=== PATIENT | female | born 1930 | race Caucasian/White ===

== ENCOUNTER 2021-10-21 21:39 | Inpatient (IN) | payer MEDICARE, OTHER ==
[~2021-10-21] VITALS: Ht 165.1 cm; Wt 61.0 kg
[2021-10-21] MEDS ORDERED: ATOR40TA28 PO (22:14)
[2021-10-21] MEDS ORDERED: ASPI-1450 PO (22:14)
[2021-10-21] MEDS ORDERED: LIDO35.422 TP (22:15)
[2021-10-21] MEDS ORDERED: ACET-3385 PO (22:15)
[2021-10-21] MEDS ORDERED: MIRT-89 PO (22:15)
[2021-10-21] MEDS ORDERED: NA P133E4 PR (22:15)
[2021-10-21] MEDS ORDERED: TIZA-211 PO (22:15)
[2021-10-21] MEDS ORDERED: MAGN-169 PO (22:15)
[2021-10-21] MEDS ORDERED: BISA10SU11 PR (22:15)
[2021-10-21] MEDS ORDERED: CLOP75TA60 PO (22:15)
[2021-10-21] MEDS ORDERED: SENN-180 PO (22:15)
[2021-10-21] MEDS ORDERED: SODIUM CHLORIDE 0.9% 500 ML IV ONE (22:30)
[2021-10-21 23:17] LABS: BASOPHILS % (AUTO) 0.1 % (0.0-2.0); EOSINOPHILS % (AUTO) 0 % (1.0-6.0); HEMATOCRIT 34.5 % (36-46); HEMOGLOBIN 11.3 g/dL (12.0-16.0); LYMPHOCYTES # (AUTO) 0.4 K/uL (1.0-4.8); LYMPHOCYTES % (AUTO) 2.7 % (22.0-44.0); MEAN CORPUSCULAR HEMOGLOBIN 32.3 pg (26.0-34.0); MEAN CORPUSCULAR HGB CONC 32.7 G/dL (31.0-37.0); MEAN CORPUSCULAR VOLUME 99 fL (80-100); MONOCYTES # (AUTO) 0.3 K/uL (0.1-1.0); MONOCYTES % (AUTO) 1.5 % (2.0-9.0); PLATELET COUNT (AUTO) 237 K/uL (150-450); RED BLOOD CELL COUNT(AUTO) 3.49 MIL/uL (4.00-5.20)
[2021-10-21 23:18] LABS: NEUTROPHILS % (AUTO) 95.7 % (40.0-70.0)
[2021-10-21 23:29] LABS: ANION GAP 10 mmol/L (8-16); CARBON DIOXIDE 26 mmol/L (22-29); CHLORIDE 104 mmol/L (98-107); GLOMERULAR FILTR. RATE CALC 28 mL/min (>60); GLUCOSE,RANDOM 119 mg/dL (70-110); POTASSIUM 4.3 mmol/L (3.5-5.1); SODIUM SERUM 140 mmol/L (136-145); UREA NITROGEN, BLOOD 50 mg/dL (7-18)
[2021-10-21 23:34] LABS: ALANINE AMINOTRANSFERASE 22 U/L (12-78); ALBUMIN 2.9 g/dL (3.4-5.0); ALKALINE PHOSPHATASE 89 U/L (46-116); ASPARTATE AMINOTRANSFERASE 18 U/L (15-37); CREATINE KINASE, TOTAL ONLY 35 U/L (26-192); TOTAL PROTEIN, SERUM 7.3 g/dL (6.4-8.2)
[2021-10-21 23:40] LABS: LACTIC ACID 3.8 mmol/L (0.4-2.0)
[2021-10-22] VITALS (7 sets, daily range): BP systolic 64–131; BP diastolic 40–67
[2021-10-22 00:28] LABS: APPEARANCE,URINE TURBID (CLEAR); BILIRUBIN,URINE NEGATIVE (NEGATIVE); GLUCOSE, URINE (UA) NEGATIVE (NEGATIVE); KETONES,URINE NEGATIVE (NEGATIVE); LEUKOCYTE ESTERASE ,URINE LARGE (NEGATIVE); NITRATE,URINE NEGATIVE (NEGATIVE); OCCULT BLOOD,URINE MODERATE (NEGATIVE); PROTEIN,URINE 100-200,SEE CONFIRM mg/dL (NEGATIVE); SPECIFIC GRAVITIY, URINE 1.018 (1.003-1.030); UROBILINOGEN,URINE <=1.0 mg/dL (<=1.0)
[2021-10-22] MEDS ORDERED: ACETAMINOPHEN 325 MG TABLET PO ONE (00:30)
[2021-10-22 00:43] LABS: WBC,URINE 51-100 /HPF (0-5)
[2021-10-22 00:44] LABS: AMORPHOUS SEDIMENT,UR Moderate /LPF (None Seen); BACTERIA,URINE Moderate /HPF (None Seen); SQUAMOUS EPITHELIAL CELL,UR Rare /LPF (None Seen)
[2021-10-22] MEDS ORDERED: ACETAMINOPHEN 325 MG/ISO-OSM 32.5 ML IV ONE ×2 (00:45→04:00)
[2021-10-22] MEDS ORDERED: CefTRIAXone 1 GM/DEXTROSE 50 ML IV ONE (00:45)
[2021-10-22 00:47] LABS: SULFOSALICYLIC ACID,URINE 2+ (Negative)
[2021-10-22] MEDS ORDERED: SODIUM CHLORIDE 0.9% 1,000 ML IV ONE ×2 (01:00→04:00)
[2021-10-22 03:01] LABS: COVID AG,FIA SOURCE NASAL SWAB
[2021-10-22] MEDS ORDERED: NOREPINEPHRINE 4 MG/D5%-WATER 250 ML IV PRN (11:15)
[2021-10-22] MEDS ORDERED: BISACODYL 10 MG RECTAL RECTAL SUPPOSITORY PR PRN (11:15)
[2021-10-22] MEDS ORDERED: ONDANSETRON HCL 4 MG/2 ML VIAL IVP PRN (11:15)
[2021-10-22] MEDS ORDERED: ZOLPIDEM TARTRATE 5 MG TABLET PO PRN (11:15)
[2021-10-22] MEDS ORDERED: MAGNESIUM HYDROXIDE SUSPENSION 30 ML UDCUP PO PRN (11:15)
[2021-10-22] MEDS ORDERED: HYDROCODONE/ACETAMINOPHEN 5-325 MG TABLET PO PRN (11:15)
[2021-10-22] MEDS ORDERED: ACETAMINOPHEN 325 MG TABLET PO PRN (11:15)
[2021-10-22] MEDS ORDERED: MORPHINE SULFATE 2 MG/ML SYRINGE IVP PRN (11:15)
[2021-10-22] MEDS ORDERED: LIDO700A30 TD (11:29)
[2021-10-22] MEDS ORDERED: SODIUM CHLORIDE 0.9% 250 ML IV ONE (12:47)
[2021-10-22] MEDS: PIPERACILLIN SODIUM/TAZOBACTAM 2.25 GM in DEXTROSE 5%-WATER 50 ML IV SCH ×3 (12:54→23:58)
[2021-10-22] MEDS ORDERED: NOREPINEPHRINE 8 MG/D5%-WATER 250 ML IV PRN (15:45)
[2021-10-22] MEDS: HEPARIN SODIUM,PORCINE 5,000 UNITS/ML VIAL SQ SCH ×2 (16:26→23:57)
[2021-10-22] MEDS: SODIUM CHLORIDE 0.9% 1,000 ML IV SCH (19:44)
[2021-10-22] MEDS: DOCUSATE SODIUM 100 MG CAPSULE PO SCH (20:02)
[2021-10-23] VITALS (8 sets, daily range): BP systolic 116–149; BP diastolic 59–95
[2021-10-23] MEDS: PIPERACILLIN SODIUM/TAZOBACTAM 2.25 GM in DEXTROSE 5%-WATER 50 ML IV SCH ×3 (05:18→17:05)
[2021-10-23 08:16] LABS: HEMATOCRIT 30.4 % (36-46); MEAN CORPUSCULAR HEMOGLOBIN 32.5 pg (26.0-34.0); MEAN CORPUSCULAR HGB CONC 32.8 G/dL (31.0-37.0); MEAN CORPUSCULAR VOLUME 99 fL (80-100); PLATELET COUNT (AUTO) 144 K/uL (150-450); RED BLOOD CELL COUNT(AUTO) 3.07 MIL/uL (4.00-5.20); RED CELL DISTRIBUTION WIDTH 14.7 % (11.5-14.5)
[2021-10-23 08:34] LABS: CALCIUM, TOTAL 9.1 mg/dL (8.8-10.5); CREATININE 1.47 mg/dL (0.60-1.30)
[2021-10-23 08:47] LABS: BAND NEUTROPHILS % (MANUAL) 53 % (0-5); LYMPHOCYTES % (MANUAL) 6 % (22-44); MONOCYTES % (MANUAL) 1 % (2-9); SEGMENTED NEUTROPHILS % 40 % (40-70)
[2021-10-23 08:49] LABS: WBC MORPHOLOGY TOXIC GRANULATION
[2021-10-23] MEDS: ASPIRIN 81 MG CHEWABLE TABLET PO SCH ×4 (08:50→10:34)
[2021-10-23] MEDS: SODIUM CHLORIDE 0.9% 1,000 ML IV SCH (08:50)
[2021-10-23] MEDS: HEPARIN SODIUM,PORCINE 5,000 UNITS/ML VIAL SQ SCH ×2 (08:50→16:11)
[2021-10-23] MEDS: DOCUSATE SODIUM 100 MG CAPSULE PO SCH ×5 (08:51→20:57)
[2021-10-23] MEDS: CLOPIDOGREL BISULFATE 75 MG TABLET PO SCH ×4 (08:51→10:33)
[2021-10-23] MEDS: PANTOPRAZOLE SODIUM 40 MG DR TABLET PO SCH ×4 (08:51→10:34)
[2021-10-23] MEDS: ATORVASTATIN CALCIUM 40 MG TABLET PO SCH ×4 (08:51→10:33)
[2021-10-24] MEDS: SODIUM CHLORIDE 0.9% 1,000 ML IV SCH ×2 (00:28→13:50)
[2021-10-24] MEDS: PIPERACILLIN SODIUM/TAZOBACTAM 2.25 GM in DEXTROSE 5%-WATER 50 ML IV SCH ×4 (00:28→17:45)
[2021-10-24] MEDS: HEPARIN SODIUM,PORCINE 5,000 UNITS/ML VIAL SQ SCH ×3 (00:28→15:50)
[2021-10-24 05:04] VITALS: BP 142/72
[2021-10-24 07:18] LABS: BASOPHILS % (AUTO) 0.1 % (0.0-2.0); EOSINOPHILS % (AUTO) 0.1 % (1.0-6.0); HEMATOCRIT 31.1 % (36-46); HEMOGLOBIN 9.8 g/dL (12.0-16.0); LYMPHOCYTES # (AUTO) 0.9 K/uL (1.0-4.8); LYMPHOCYTES % (AUTO) 3.1 % (22.0-44.0); MEAN CORPUSCULAR HEMOGLOBIN 32.2 pg (26.0-34.0); MEAN CORPUSCULAR HGB CONC 31.6 G/dL (31.0-37.0); MEAN CORPUSCULAR VOLUME 102 fL (80-100); MONOCYTES # (AUTO) 0.7 K/uL (0.1-1.0); MONOCYTES % (AUTO) 2.4 % (2.0-9.0); NEUTROPHILS # (AUTO) 25.8 K/uL (1.8-7.7); PLATELET COUNT (AUTO) 136 K/uL (150-450); RED BLOOD CELL COUNT(AUTO) 3.05 MIL/uL (4.00-5.20); RED CELL DISTRIBUTION WIDTH 15.9 % (11.5-14.5)
[2021-10-24 07:26] LABS: CALCIUM, TOTAL 8.7 mg/dL (8.8-10.5); CREATININE 1.7 mg/dL (0.60-1.30); POTASSIUM 3.9 mmol/L (3.5-5.1)
[2021-10-24 07:29] LABS: NEUTROPHILS % (AUTO) 94.3 % (40.0-70.0)
[2021-10-24 07:31] VITALS: BP 135/56
[2021-10-24] MEDS: PANTOPRAZOLE SODIUM 40 MG DR TABLET PO SCH (09:00)
[2021-10-24] MEDS: ASPIRIN 81 MG CHEWABLE TABLET PO SCH (09:00)
[2021-10-24] MEDS: DOCUSATE SODIUM 100 MG CAPSULE PO SCH ×2 (09:00→20:11)
[2021-10-24] MEDS: ATORVASTATIN CALCIUM 40 MG TABLET PO SCH (09:00)
[2021-10-24] MEDS: CLOPIDOGREL BISULFATE 75 MG TABLET PO SCH (09:00)
[2021-10-24 11:45] VITALS: BP 125/69
[2021-10-24] MEDS ORDERED: SODIUM CHLORIDE 0.9% 500 ML IV ONE (13:02)
[2021-10-24 16:01] VITALS: BP 145/80
[2021-10-24] MEDS ORDERED: SODIUM CHLORIDE 0.9% 100 ML ONE (17:47)
[2021-10-24 20:06] VITALS: BP 160/80
[2021-10-25 00:03] VITALS: BP 132/98
[2021-10-25] MEDS: HEPARIN SODIUM,PORCINE 5,000 UNITS/ML VIAL SQ SCH ×3 (00:18→16:28)
[2021-10-25] MEDS: PIPERACILLIN SODIUM/TAZOBACTAM 2.25 GM in DEXTROSE 5%-WATER 50 ML IV SCH ×4 (00:19→18:10)
[2021-10-25 05:00] VITALS: BP 115/81
[2021-10-25] MEDS: SODIUM CHLORIDE 0.9% 1,000 ML IV SCH (05:44)
[2021-10-25 07:16] VITALS: BP 134/77
[2021-10-25 08:11] LABS: BASOPHILS % (AUTO) 0.2 % (0.0-2.0); EOSINOPHILS % (AUTO) 0.5 % (1.0-6.0); HEMATOCRIT 29.2 % (36-46); HEMOGLOBIN 9.5 g/dL (12.0-16.0); LYMPHOCYTES # (AUTO) 0.9 K/uL (1.0-4.8); LYMPHOCYTES % (AUTO) 6.5 % (22.0-44.0); MEAN CORPUSCULAR HEMOGLOBIN 32.9 pg (26.0-34.0); MEAN CORPUSCULAR HGB CONC 32.6 G/dL (31.0-37.0); MEAN CORPUSCULAR VOLUME 101 fL (80-100); MONOCYTES # (AUTO) 0.8 K/uL (0.1-1.0); MONOCYTES % (AUTO) 6.2 % (2.0-9.0); NEUTROPHILS # (AUTO) 11.4 K/uL (1.8-7.7); PLATELET COUNT (AUTO) 112 K/uL (150-450)
[2021-10-25] MEDS: ATORVASTATIN CALCIUM 40 MG TABLET PO SCH (08:12)
[2021-10-25] MEDS: ASPIRIN 81 MG CHEWABLE TABLET PO SCH (08:12)
[2021-10-25] MEDS: DOCUSATE SODIUM 100 MG CAPSULE PO SCH ×2 (08:12→21:00)
[2021-10-25] MEDS: CLOPIDOGREL BISULFATE 75 MG TABLET PO SCH (08:12)
[2021-10-25 08:16] LABS: NEUTROPHILS % (AUTO) 86.6 % (40.0-70.0)
[2021-10-25] MEDS: PANTOPRAZOLE SODIUM 40 MG DR TABLET PO SCH (08:24)
[2021-10-25 08:36] LABS: CALCIUM, TOTAL 8.3 mg/dL (8.8-10.5); CREATININE 1.26 mg/dL (0.60-1.30); FREE T4 (FREE THYROXINE) 0.93 ng/dL (0.76-1.46); POTASSIUM 3.7 mmol/L (3.5-5.1); THYROID STIMULATING HORMONE 1.52 uIU/mL (0.36-3.74)
[2021-10-25 08:39] LABS: LACTIC ACID 0.6 mmol/L (0.4-2.0)
[2021-10-25] MEDS ORDERED: SODIUM CHLORIDE 0.45% 1,000 ML IV ONE (10:44)
[2021-10-25 11:36] VITALS: BP 126/87
[2021-10-25] MEDS: SODIUM CHLORIDE 0.45% 1,000 ML IV SCH (12:06)
[2021-10-25 15:52] VITALS: BP 123/70
[2021-10-25 15:57] LABS: CREATININE 1.08 mg/dL (0.60-1.30); POTASSIUM 3.1 mmol/L (3.5-5.1)
[2021-10-25] MEDS ORDERED: POTASSIUM CHLORIDE 10% 40 MEQ/30 ML LIQUID UDCUP PO ONE (19:45)
[2021-10-25 20:00] VITALS: BP 125/67
[2021-10-25 22:19] LABS: CALCIUM, TOTAL 8.3 mg/dL (8.8-10.5); CREATININE 0.97 mg/dL (0.60-1.30); POTASSIUM 3.1 mmol/L (3.5-5.1)
[2021-10-26] VITALS (7 sets, daily range): BP systolic 119–159; BP diastolic 61–98
[2021-10-26] MEDS: SODIUM CHLORIDE 0.45% 1,000 ML IV SCH ×2 (00:44→13:05)
[2021-10-26] MEDS: PIPERACILLIN SODIUM/TAZOBACTAM 2.25 GM in DEXTROSE 5%-WATER 50 ML IV SCH ×2 (00:44→06:15)
[2021-10-26] MEDS: HEPARIN SODIUM,PORCINE 5,000 UNITS/ML VIAL SQ SCH ×4 (00:44→23:39)
[2021-10-26 06:46] LABS: BASOPHILS % (AUTO) 0.1 % (0.0-2.0); EOSINOPHILS % (AUTO) 2.8 % (1.0-6.0); HEMATOCRIT 31.5 % (36-46); HEMOGLOBIN 10.1 g/dL (12.0-16.0); LYMPHOCYTES # (AUTO) 1.1 K/uL (1.0-4.8); LYMPHOCYTES % (AUTO) 13.4 % (22.0-44.0); MEAN CORPUSCULAR HEMOGLOBIN 33.2 pg (26.0-34.0); MEAN CORPUSCULAR HGB CONC 32.1 G/dL (31.0-37.0); MEAN CORPUSCULAR VOLUME 103 fL (80-100); MONOCYTES # (AUTO) 1.2 K/uL (0.1-1.0); MONOCYTES % (AUTO) 15.2 % (2.0-9.0); NEUTROPHILS # (AUTO) 5.5 K/uL (1.8-7.7); NEUTROPHILS % (AUTO) 68.5 % (40.0-70.0); PLATELET COUNT (AUTO) 112 K/uL (150-450); RED BLOOD CELL COUNT(AUTO) 3.04 MIL/uL (4.00-5.20); RED CELL DISTRIBUTION WIDTH 15.6 % (11.5-14.5)
[2021-10-26 06:52] LABS: BILIRUBIN,TOTAL 0.5 mg/dL (0.1-1.0); CALCIUM, TOTAL 8.2 mg/dL (8.8-10.5); CREATININE 0.93 mg/dL (0.60-1.30); POTASSIUM 4.3 mmol/L (3.5-5.1)
[2021-10-26] MEDS: DOCUSATE SODIUM 100 MG CAPSULE PO SCH ×2 (08:49→21:00)
[2021-10-26] MEDS: PANTOPRAZOLE SODIUM 40 MG DR TABLET PO SCH (08:49)
[2021-10-26] MEDS: ATORVASTATIN CALCIUM 40 MG TABLET PO SCH (09:04)
[2021-10-26] MEDS: ASPIRIN 81 MG CHEWABLE TABLET PO SCH (09:05)
[2021-10-26] MEDS: CLOPIDOGREL BISULFATE 75 MG TABLET PO SCH (09:05)
[2021-10-26 12:46] LABS: ANION GAP 8 mmol/L (8-16); CALCIUM, TOTAL 8.3 mg/dL (8.8-10.5); CARBON DIOXIDE 20 mmol/L (22-29); CHLORIDE 120 mmol/L (98-107); CREATININE 0.84 mg/dL (0.60-1.30); GLOMERULAR FILTR. RATE CALC > 60 mL/min (>60); GLUCOSE,RANDOM 124 mg/dL (70-110); POTASSIUM 3.9 mmol/L (3.5-5.1); SODIUM SERUM 148 mmol/L (136-145); UREA NITROGEN, BLOOD 40 mg/dL (7-18)
[2021-10-26] MEDS: CefTRIAXone 1 GM/DEXTROSE 50 ML IV SCH (13:05)
[2021-10-26] MEDS: FAMOTIDINE 20 MG TABLET PO SCH (21:16)
[2021-10-27] MEDS: SODIUM CHLORIDE 0.45% 1,000 ML IV SCH (03:11)
[2021-10-27 04:27] VITALS: BP 158/80
[2021-10-27 07:04] LABS: BASOPHILS % (AUTO) 0.2 % (0.0-2.0); EOSINOPHILS % (AUTO) 2.2 % (1.0-6.0); HEMATOCRIT 29.2 % (36-46); HEMOGLOBIN 9.5 g/dL (12.0-16.0); LYMPHOCYTES # (AUTO) 1.1 K/uL (1.0-4.8); LYMPHOCYTES % (AUTO) 11.9 % (22.0-44.0); MEAN CORPUSCULAR HEMOGLOBIN 33.1 pg (26.0-34.0); MEAN CORPUSCULAR HGB CONC 32.6 G/dL (31.0-37.0); MEAN CORPUSCULAR VOLUME 101 fL (80-100); MONOCYTES % (AUTO) 10.7 % (2.0-9.0); NEUTROPHILS # (AUTO) 6.9 K/uL (1.8-7.7); PLATELET COUNT (AUTO) 122 K/uL (150-450); RED BLOOD CELL COUNT(AUTO) 2.88 MIL/uL (4.00-5.20); RED CELL DISTRIBUTION WIDTH 15.3 % (11.5-14.5)
[2021-10-27 07:28] LABS: ALANINE AMINOTRANSFERASE 10 U/L (12-78); ALBUMIN 1.9 g/dL (3.4-5.0); ALKALINE PHOSPHATASE 84 U/L (46-116); ANION GAP 7 mmol/L (8-16); ASPARTATE AMINOTRANSFERASE 17 U/L (15-37); BILIRUBIN,TOTAL 0.3 mg/dL (0.1-1.0); CALCIUM, TOTAL 8.4 mg/dL (8.8-10.5); CARBON DIOXIDE 21 mmol/L (22-29); CHLORIDE 117 mmol/L (98-107); GLUCOSE,RANDOM 96 mg/dL (70-110); POTASSIUM 3.6 mmol/L (3.5-5.1); SODIUM SERUM 145 mmol/L (136-145); TOTAL PROTEIN, SERUM 5.7 g/dL (6.4-8.2); UREA NITROGEN, BLOOD 34 mg/dL (7-18)
[2021-10-27 07:30] LABS: GLOMERULAR FILTR. RATE CALC > 60 mL/min (>60)
[2021-10-27 08:05] VITALS: BP 119/52
[2021-10-27] MEDS: DOCUSATE SODIUM 100 MG CAPSULE PO SCH ×2 (09:00→20:10)
[2021-10-27] MEDS: CLOPIDOGREL BISULFATE 75 MG TABLET PO SCH (09:21)
[2021-10-27] MEDS: ASPIRIN 81 MG CHEWABLE TABLET PO SCH (09:21)
[2021-10-27] MEDS: FAMOTIDINE 20 MG TABLET PO SCH ×2 (09:21→22:05)
[2021-10-27] MEDS: HEPARIN SODIUM,PORCINE 5,000 UNITS/ML VIAL SQ SCH ×2 (09:21→16:13)
[2021-10-27] MEDS: ATORVASTATIN CALCIUM 40 MG TABLET PO SCH (09:21)
[2021-10-27 11:25] VITALS: BP 156/57
[2021-10-27] MEDS: CefTRIAXone 1 GM/DEXTROSE 50 ML IV SCH (12:51)
[2021-10-27 16:15] VITALS: BP 159/55
[2021-10-27] MEDS ORDERED: DILTIAZEM HCL 5 MG/ML 5 ML VIAL IVP ONE (20:00)
[2021-10-27 20:01] VITALS: BP 108/69
[2021-10-28 00:19] VITALS: BP 141/75
[2021-10-28] MEDS: HEPARIN SODIUM,PORCINE 5,000 UNITS/ML VIAL SQ SCH ×4 (00:48→23:26)
[2021-10-28 03:57] VITALS: BP 141/83
[2021-10-28 07:14] LABS: BASOPHILS % (AUTO) 0.1 % (0.0-2.0); EOSINOPHILS % (AUTO) 2.9 % (1.0-6.0); HEMATOCRIT 27.1 % (36-46); HEMOGLOBIN 8.9 g/dL (12.0-16.0); LYMPHOCYTES # (AUTO) 1.2 K/uL (1.0-4.8); LYMPHOCYTES % (AUTO) 13.8 % (22.0-44.0); MEAN CORPUSCULAR HEMOGLOBIN 32.9 pg (26.0-34.0); MEAN CORPUSCULAR VOLUME 99 fL (80-100); MONOCYTES # (AUTO) 0.8 K/uL (0.1-1.0); MONOCYTES % (AUTO) 8.9 % (2.0-9.0); NEUTROPHILS # (AUTO) 6.4 K/uL (1.8-7.7); NEUTROPHILS % (AUTO) 74.3 % (40.0-70.0); PLATELET COUNT (AUTO) 145 K/uL (150-450); RED BLOOD CELL COUNT(AUTO) 2.72 MIL/uL (4.00-5.20); RED CELL DISTRIBUTION WIDTH 14.6 % (11.5-14.5)
[2021-10-28 07:29] LABS: ANION GAP 7 mmol/L (8-16); CALCIUM, TOTAL 7.6 mg/dL (8.8-10.5); CARBON DIOXIDE 20 mmol/L (22-29); CHLORIDE 116 mmol/L (98-107); CREATININE 0.57 mg/dL (0.60-1.30); GLUCOSE,RANDOM 97 mg/dL (70-110); POTASSIUM 3.2 mmol/L (3.5-5.1); SODIUM SERUM 143 mmol/L (136-145); UREA NITROGEN, BLOOD 23 mg/dL (7-18)
[2021-10-28 07:30] LABS: GLOMERULAR FILTR. RATE CALC > 60 mL/min (>60)
[2021-10-28 07:51] VITALS: BP 148/92
[2021-10-28] MEDS: DOCUSATE SODIUM 100 MG CAPSULE PO SCH ×2 (09:29→20:20)
[2021-10-28] MEDS: CLOPIDOGREL BISULFATE 75 MG TABLET PO SCH (09:29)
[2021-10-28] MEDS: FAMOTIDINE 20 MG TABLET PO SCH ×2 (09:29→20:20)
[2021-10-28] MEDS: ATORVASTATIN CALCIUM 40 MG TABLET PO SCH (09:29)
[2021-10-28] MEDS: ASPIRIN 81 MG CHEWABLE TABLET PO SCH (09:29)
[2021-10-28] MEDS ORDERED: POTASSIUM CHLORIDE 10% 40 MEQ/30 ML LIQUID UDCUP PO ONE (10:00)
[2021-10-28 11:45] VITALS: BP 122/58
[2021-10-28] MEDS ORDERED: SODIUM CHLORIDE 0.9% 250 ML IV ONE (12:03)
[2021-10-28] MEDS: CefTRIAXone 1 GM/DEXTROSE 50 ML IV SCH (12:10)
[2021-10-28 15:32] VITALS: BP 126/78
[2021-10-28 20:10] VITALS: BP 150/75
[2021-10-28] MEDS: METOPROLOL TARTRATE 25 MG TABLET PO SCH (20:20)
[2021-10-29 00:13] VITALS: BP 138/83
[2021-10-29 04:42] VITALS: BP 158/77
[2021-10-29 07:34] VITALS: BP 142/84
[2021-10-29] MEDS: METOPROLOL TARTRATE 25 MG TABLET PO SCH ×2 (08:16→19:46)
[2021-10-29] MEDS: FAMOTIDINE 20 MG TABLET PO SCH ×2 (08:17→19:46)
[2021-10-29] MEDS: CLOPIDOGREL BISULFATE 75 MG TABLET PO SCH (08:17)
[2021-10-29] MEDS: ASPIRIN 81 MG CHEWABLE TABLET PO SCH (08:17)
[2021-10-29] MEDS: DOCUSATE SODIUM 100 MG CAPSULE PO SCH ×2 (08:17→19:46)
[2021-10-29] MEDS: HEPARIN SODIUM,PORCINE 5,000 UNITS/ML VIAL SQ SCH ×3 (08:17→23:19)
[2021-10-29] MEDS: ATORVASTATIN CALCIUM 40 MG TABLET PO SCH (08:17)
[2021-10-29 08:35] LABS: BASOPHILS % (AUTO) 0.9 % (0.0-2.0); EOSINOPHILS % (AUTO) 2.9 % (1.0-6.0); HEMATOCRIT 30.6 % (36-46); LYMPHOCYTES # (AUTO) 1.4 K/uL (1.0-4.8); LYMPHOCYTES % (AUTO) 12.8 % (22.0-44.0); MEAN CORPUSCULAR HEMOGLOBIN 32.8 pg (26.0-34.0); MEAN CORPUSCULAR HGB CONC 32.7 G/dL (31.0-37.0); MEAN CORPUSCULAR VOLUME 100 fL (80-100); MONOCYTES # (AUTO) 0.7 K/uL (0.1-1.0); MONOCYTES % (AUTO) 6.2 % (2.0-9.0); NEUTROPHILS # (AUTO) 8.6 K/uL (1.8-7.7); NEUTROPHILS % (AUTO) 77.2 % (40.0-70.0); PLATELET COUNT (AUTO) 196 K/uL (150-450); RED BLOOD CELL COUNT(AUTO) 3.05 MIL/uL (4.00-5.20); RED CELL DISTRIBUTION WIDTH 15.6 % (11.5-14.5)
[2021-10-29 09:02] LABS: ALANINE AMINOTRANSFERASE 12 U/L (12-78); ALBUMIN 1.9 g/dL (3.4-5.0); ALKALINE PHOSPHATASE 82 U/L (46-116); ANION GAP 8 mmol/L (8-16); ASPARTATE AMINOTRANSFERASE 16 U/L (15-37); BILIRUBIN,TOTAL 0.3 mg/dL (0.1-1.0); CALCIUM, TOTAL 8.1 mg/dL (8.8-10.5); CARBON DIOXIDE 23 mmol/L (22-29); CHLORIDE 115 mmol/L (98-107); CREATININE 0.65 mg/dL (0.60-1.30); FREE T4 (FREE THYROXINE) 1.17 ng/dL (0.76-1.46); GLUCOSE,RANDOM 94 mg/dL (70-110); POTASSIUM 3.9 mmol/L (3.5-5.1); SODIUM SERUM 146 mmol/L (136-145); THYROID STIMULATING HORMONE 1.64 uIU/mL (0.36-3.74); TOTAL PROTEIN, SERUM 5.9 g/dL (6.4-8.2); UREA NITROGEN, BLOOD 20 mg/dL (7-18)
[2021-10-29 09:09] LABS: GLOMERULAR FILTR. RATE CALC > 60 mL/min (>60)
[2021-10-29 11:47] VITALS: BP 133/80
[2021-10-29] MEDS: CefTRIAXone SODIUM 2 GM in DEXTROSE 5%-WATER 50 ML IV SCH (14:06)
[2021-10-29 15:38] VITALS: BP 142/78
[2021-10-29] MEDS ORDERED: MEBROFENIN TC99M/MCL ISOTOPE 1 EA INJ INJ ONE (16:00)
[2021-10-29 19:42] VITALS: BP 141/67
[2021-10-30] VITALS (7 sets, daily range): BP systolic 107–152; BP diastolic 51–77
[2021-10-30] MEDS: ASPIRIN 81 MG CHEWABLE TABLET PO SCH (09:08)
[2021-10-30] MEDS: FAMOTIDINE 20 MG TABLET PO SCH ×2 (09:08→20:38)
[2021-10-30] MEDS: ATORVASTATIN CALCIUM 40 MG TABLET PO SCH (09:08)
[2021-10-30] MEDS: DOCUSATE SODIUM 100 MG CAPSULE PO SCH ×2 (09:08→20:38)
[2021-10-30] MEDS: METOPROLOL TARTRATE 25 MG TABLET PO SCH ×2 (09:08→20:38)
[2021-10-30] MEDS: CLOPIDOGREL BISULFATE 75 MG TABLET PO SCH (09:08)
[2021-10-30] MEDS: HEPARIN SODIUM,PORCINE 5,000 UNITS/ML VIAL SQ SCH ×2 (09:08→16:04)
[2021-10-30] MEDS: CefTRIAXone SODIUM 2 GM in DEXTROSE 5%-WATER 50 ML IV SCH (11:47)
[2021-10-31] MEDS: HEPARIN SODIUM,PORCINE 5,000 UNITS/ML VIAL SQ SCH ×2 (00:17→08:24)
[2021-10-31 00:55] VITALS: BP 129/68
[2021-10-31 04:35] VITALS: BP 100/61
[2021-10-31 07:15] VITALS: BP 137/60
[2021-10-31] MEDS: ASPIRIN 81 MG CHEWABLE TABLET PO SCH (08:24)
[2021-10-31] MEDS: CLOPIDOGREL BISULFATE 75 MG TABLET PO SCH (08:25)
[2021-10-31] MEDS: DOCUSATE SODIUM 100 MG CAPSULE PO SCH (08:25)
[2021-10-31] MEDS: ATORVASTATIN CALCIUM 40 MG TABLET PO SCH (08:25)
[2021-10-31] MEDS: METOPROLOL TARTRATE 25 MG TABLET PO SCH (08:25)
[2021-10-31] MEDS: FAMOTIDINE 20 MG TABLET PO SCH (08:25)
[2021-10-31] MEDS: CefTRIAXone SODIUM 2 GM in DEXTROSE 5%-WATER 50 ML IV SCH (11:40)
[2021-10-31 11:50] VITALS: BP 120/49
[2021-10-31] MEDS ORDERED: CEFX2I IV ×2 (12:23→13:33)
[2021-10-31] MEDS ORDERED: FAMO20 PO (12:24)
[2021-10-31] MEDS ORDERED: DOCU-385 PO (12:24)
[2021-10-31] MEDS ORDERED: HEPA500018 SQ (12:25)
[2021-10-31] MEDS ORDERED: METO25 PO (12:27)
[2021-10-31] MEDS ORDERED: HYDR-4723 PO (13:24)
[2021-10-31] MEDS ORDERED: ZOLP-280 PO (13:29)
[2021-10-31 16:00] VITALS: BP 118/50
== END 2021-10-31 17:40 | DRG 871 ==
LOC: EMS 21:45 → 5S 10-22 06:49 → ICU 10-22 10:53 → 5S 10-23 04:53
PROVIDERS: ADMIT Internal Medicine; ATTEND Internal Medicine
PROC: CF1C1ZZ Planar Nuclear Medicine Imaging of Hepatobiliary System, All using Technetium 99m (Tc-99m) (ICD-10-PCS; principal; 2021-10-29)
PROC: 05HY33Z Insertion of Infusion Device into Upper Vein, Percutaneous Approach (ICD-10-PCS; 2021-10-30)
DX: A41.50 Gram-negative sepsis, unspecified (principal); G93.41 Metabolic encephalopathy; E44.0 Moderate protein-calorie malnutrition; E87.0 Hyperosmolality and hypernatremia; E87.2 Acidosis; I69.351 Hemiplegia and hemiparesis following cerebral infarction affecting right dominant side; N13.6 Pyonephrosis; N20.2 Calculus of kidney with calculus of ureter; Z20.822 Contact with and (suspected) exposure to COVID-19; E78.00 Pure hypercholesterolemia, unspecified; E78.5 Hyperlipidemia, unspecified; F32.A Depression, unspecified; B96.1 Klebsiella pneumoniae [K. pneumoniae] as the cause of diseases classified elsewhere; B96.4 Proteus (mirabilis) (morganii) as the cause of diseases classified elsewhere; B96.89 Other specified bacterial agents as the cause of diseases classified elsewhere; K80.20 Calculus of gallbladder without cholecystitis without obstruction; K21.9 Gastro-esophageal reflux disease without esophagitis; E86.0 Dehydration; I95.9 Hypotension, unspecified; I11.9 Hypertensive heart disease without heart failure; B95.4 Other streptococcus as the cause of diseases classified elsewhere; N21.0 Calculus in bladder; R65.20 Severe sepsis without septic shock; D64.9 Anemia, unspecified; D69.6 Thrombocytopenia, unspecified; E87.8 Other disorders of electrolyte and fluid balance, not elsewhere classified; I34.0 Nonrheumatic mitral (valve) insufficiency; I48.0 Paroxysmal atrial fibrillation; K59.00 Constipation, unspecified; I69.320 Aphasia following cerebral infarction; Z79.02 Long term (current) use of antithrombotics/antiplatelets; Z79.82 Long term (current) use of aspirin; Z79.899 Other long term (current) drug therapy; Z68.22 Body mass index [BMI] 22.0-22.9, adult
CPT/HCPCS: 36245; 36569; 51702; 70450; 71045; 74176; 76700; 76770; 76937; 78226; 80048; 80053; 81001; 81002; 82550; 83605; 84145; 84439; 84443; 84484; 85025; 87040; 87077; 87081; 87086; 87205; 92526; 92610; 93005; 93306; 99285; A9537; G0378; J0131; J0696; J1644; J2543; J3490; J7030; J7040; J7050; J7060; 36415-L1; 36415-TC